=== PATIENT | male | born 1990 | race Caucasian/White ===

== ENCOUNTER 2016-07-02 23:10 | Emergency (ER) | payer SELFPAY ==
[~2016-07-02] VITALS: Ht 180.3 cm; Wt 86.2 kg
[2016-07-02 23:15] VITALS: BP 124/75
[2016-07-03] MEDS ORDERED: LIDOCAINE W/ EPINEPHRINE 1% 20ML VIAL ONE (01:25)
[2016-07-03] MEDS ORDERED: LIDOCAINE W/ EPINEPHRINE 1% 20ML VIAL SC ONE (01:45)
[2016-07-03] MEDS ORDERED: LIDOCAINE W/ EPINEPHRINE 1% 20ML VIAL IJ ONE (02:00)
[2016-07-03] MEDS ORDERED: LIDOCAINE W/ EPINEPHRINE 1% 20ML VIAL ID ONE (02:00)
== END 2016-07-03 02:35 | disposition home or self-care (01) ==
LOC: ER 23:15
DX: S91.011A Laceration without foreign body, right ankle, initial encounter (principal); W26.0XXA Contact with knife, initial encounter; Y93.89 Activity, other specified; Y99.8 Other external cause status; Y92.89 Other specified places as the place of occurrence of the external cause; Z88.6 Allergy status to analgesic agent
CPT/HCPCS: 12044